=== PATIENT | male | born 1955 | race Caucasian/White ===

== ENCOUNTER 2017-09-12 10:32 | Observation (INO) | payer MEDICARE, MEDICAID ==
[2017-09-12] VITALS (17 sets, daily range): BP systolic 141–185; BP diastolic 62–92
[~2017-09-12] VITALS: Ht 175.3 cm; Wt 68.2 kg
[~2017-09-12 10:32] MED LIST: ALPR-624 PO; ASPI-1265 PO; ATOR80TA PO; CHOL200035 PO; CILO100T; DIL100C PO; ENOX40SY7 SQ; ESOM40CA30; GABA-338; INSU100V13; LANTUS SQ; LEVO50TA67 PO; LOP25T PO; MYCO500T5 PO; NORCO10T PO; PRED5TAB PO; TACR1CAP28 PO; WARF5TAB76; [UNRECOGNIZED DRUG - CODE]
[2017-09-12] MEDS ORDERED: diphenhydrAMINE 25mg capsule PO PRN (11:15)
[2017-09-12] MEDS ORDERED: LORazepam 0.5 MG tablet PO PRN (11:15)
[2017-09-12] MEDS ORDERED: midazolam 2 mg/2 ml injection ONE (13:22)
[2017-09-12] MEDS ORDERED: heparin 1,000 UNITS/NS 500ml 500 ML ONE (13:22)
[2017-09-12] MEDS ORDERED: LIDOcaine 1.5% w/epinephrine 1:200,000 5ml ampul ONE (13:22)
[2017-09-12] MEDS ORDERED: fentaNYL/PF 50MCG/1 ML 2ML syringe ONE (13:22)
[2017-09-12] MEDS ORDERED: iohexol 350MG/ML 100ml bottle IV ONE (13:22)
[2017-09-12] MEDS ORDERED: heparin 1,000unit/ml 10ml vial 10 ML ONE (14:18)
[2017-09-12] MEDS ORDERED: clopidogrel 300mg tablet ONE (14:41)
[2017-09-12] MEDS ORDERED: hydrALAZINE 20mg/ml inj. IV ONE (14:46)
[2017-09-12] MEDS ORDERED: proCHLORperazine 10 MG/2 ml inj IV PRN (15:35)
[2017-09-12] MEDS ORDERED: ondansetron/PF 4mg/2ml inj IV PRN (15:35)
[2017-09-12] MEDS ORDERED: HYDROcodone/acetaminophen 5mg/325mg tablet PO PRN (15:35)
[2017-09-12] MEDS: HYDROcodone/acetaminophen 10/325mg tab PO PRN ×2 (17:17→21:21)
[2017-09-12] MEDS: OXAZEpam 15mg capsule PO PRN (17:17)
[2017-09-12] MEDS: normal saline 1000ml 1,000 ML IV SCH ×2 (17:22→22:00)
[2017-09-12] MEDS ORDERED: insulin Lispro (HumaLOG) vial - multi-dose SQ SCH (20:35)
[2017-09-12] MEDS ORDERED: glucagon, human recombinant 1mg kit SUBCUT PRN (20:35)
[2017-09-12] MEDS ORDERED: dextrose ORAL solution 15 GM/59 ML bottle PO PRN ×2 (20:35)
[2017-09-12] MEDS ORDERED: dextrose 50%-water 50ml dispensing syringe IV PRN ×2 (20:35)
[2017-09-12] MEDS ORDERED: gabapentin 300mg capsule PO SCH (21:00)
[2017-09-12] MEDS ORDERED: atorvastatin 20mg tablet PO SCH (21:00)
[2017-09-12] MEDS ORDERED: insulin glargine (Lantus) pen - multi-dose SQ SCH (21:00)
[2017-09-12] MEDS ORDERED: ALPRAZolam 0.5mg tablet PO SCH (21:00)
[2017-09-13 00:20] VITALS: BP 125/61
[2017-09-13 01:20] VITALS: BP 157/78
[2017-09-13] MEDS: OXAZEpam 15mg capsule PO PRN (01:48)
[2017-09-13] MEDS: HYDROcodone/acetaminophen 10/325mg tab PO PRN (01:48)
[2017-09-13] MEDS ORDERED: HYDROcodone/acetaminophen 10/325mg tab PO SCH (02:00)
[2017-09-13 03:00] VITALS: BP 167/80
[2017-09-13 05:29] LABS: HEMOGLOBIN A1C 6.5 % (4.5-6.2)
[2017-09-13 05:42] LABS: PROTHROMBIN TIME 10.7 SECONDS (9.0-12.0)
[2017-09-13 06:00] LABS: CHOL/HDL RATIO 1.9 (0.00-4.99); CHOLESTEROL 142 MG/DL (0-200); HDL CHOLESTEROL 74 MG/DL (35-60); LDL CHOLESTEROL 54 MG/DL (50-100); TRIGLYCERIDES 108 MG/DL (20-135); eGFR 51 ML/MIN
[2017-09-13] MEDS ORDERED: CLOP75TA15 PO (06:55)
[2017-09-13] MEDS ORDERED: levoTHYROXINE 25mcg tablet PO SCH (07:00)
[2017-09-13] MEDS ORDERED: cilostazol 50mg tablet PO SCH (07:00)
[2017-09-13] MEDS ORDERED: pantoprazole 40mg Tablet.DR PO SCH (07:30)
[2017-09-13] MEDS ORDERED: tacrolimus anhydrous 1mg capsule PO SCH (08:00)
[2017-09-13] MEDS ORDERED: metoprolol tartrate 50mg tablet PO SCH (08:00)
[2017-09-13] MEDS ORDERED: clopidogrel 75mg tablet PO SCH (08:00)
[2017-09-13] MEDS ORDERED: predniSONE 5mg tablet PO SCH (08:00)
[2017-09-13] MEDS ORDERED: mycophenolate mofetil 250mg capsule PO SCH (08:00)
[2017-09-13] MEDS ORDERED: phenytoin sod ER 100mg capsule PO SCH (08:00)
[2017-09-13] MEDS ORDERED: warfarin 5mg tablet PO SCH (21:00)
== END 2017-09-13 08:05 | disposition home or self-care (01) ==
LOC: SSTAY O 10:32 → PCU 3S 20:00 → SSTAY O 21:51
PROVIDERS: ADMIT Internal Medicine Interventional Cardiology; ATTEND Internal Medicine Interventional Cardiology
DX: I73.9 Peripheral vascular disease, unspecified (principal); I12.9 Hypertensive chronic kidney disease with stage 1 through stage 4 chronic kidney disease, or unspecified chronic kidney disease; E11.22 Type 2 diabetes mellitus with diabetic chronic kidney disease; N18.9 Chronic kidney disease, unspecified; E78.5 Hyperlipidemia, unspecified; Z79.01 Long term (current) use of anticoagulants; Z79.899 Other long term (current) drug therapy; Z79.4 Long term (current) use of insulin; Z94.0 Kidney transplant status
CPT/HCPCS: 36415; 37226; 75710; 80061; 82565; 82948; 83036; 85610; A4315; A4353; A6257; C1725; C1760; C1769; C1876; G0378; J0360; J1644; J2250; J3010; J3490; J7030; J7507; J7517; Q9967; 36247; 99152; 99153; A4620; J1815

== ENCOUNTER 2018-10-30 16:18 | Inpatient (IN) | payer MEDICARE, MEDICAID | END 2018-11-04 15:00 | disposition home or self-care (01) | LOC: ER 16:18 → ED HOLD 20:23 → PCU 3S 23:15 | DX: T86.10 Unspecified complication of kidney transplant (principal); N17.9 Acute kidney failure, unspecified; A08.11 Acute gastroenteropathy due to Norwalk agent; Z94.0 Kidney transplant status ==